=== PATIENT | female | born 1965 | race Two or more races ===

== ENCOUNTER 2020-02-13 09:40 | Inpatient (IN) | payer OTHER ==
[~2020-02-13] VITALS: Ht 160 cm; Wt 68.5 kg
--- NOTE | 2020-02-13 09:39 | NUR ---
ED Nurse Note: NO isolation room available at this time. ERMD and charge nurse aware.
[2020-02-13 09:40] VITALS: BP 144/86
--- NOTE | 2020-02-13 09:40 | NUR ---
ED Nurse Note: Pt NICHugh RA26 from work c/o weakness, fatigue, body aches and ALOC x45 mins ago. Per pt, she suddenly felt dizzy. Pt works in a [employer]. Pt AAOx4, verbally responsive upon arrival. Denies CP/ SOB. Breathing even and unlabored, on room air. Isolation precaution is observed. Placed on lunchroom monitor. ERMD at bedside.
[2020-02-13] MEDS ORDERED: Cefepime HCl 1 GM in NS 55 ML IV ONE (09:45)
[2020-02-13] MEDS ORDERED: Vancomycin 1 GM in NS 275 ML IV ONE (09:45)
--- NOTE | 2020-02-13 09:49 | Emergency Room Report ---
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 Patient History Limited by: medical condition - Altered mental status Past Medical History: see triage record Reviewed Nursing Documentation: PMH: Agreed; PSxH: Agreed Review of Systems All Other Systems: limited - Altered mental status Physical Exam Vital Signs Date Time Temp Pulse Resp B/P (MAP) Pulse Ox O2 Delivery O2 Flow Rate FiO2 02/13/20 09:36 98.8 64 16 144/86 (105) 99 Room Air Sp02 EP Interpretation: reviewed, normal General Appearance: lethargic Head: normocephalic, atraumatic Eyes: bilateral eye PERRL, bilateral eye EOMI ENT: uvula midline, moist mucus membranes Neck: supple, thyroid normal, supple/symm/no masses Respiratory: lungs clear, no respiratory distress, no retraction, no accessory muscle use Cardiovascular #1: normal peripheral pulses, regular rate, rhythm, no edema, no gallop, no murmur Gastrointestinal: non tender, soft, no guarding, no rebound Musculoskeletal: normal inspection Neurologic: responsive, other - Moves all 4 extremities Skin: no rash, warm/dry Procedures Critical Care Time Critical Care Time Given the critical condition in which the patient arrived, the patient was immediately assessed by myself and the nurse, and cardiac monitoring initiated due to the potential for rapid decompensation of the patient's clinical condition. During the course of the patient's stay, I spent a considerable amount of time at the bedside performing serial re-evaluations of the patient's hemodynamic and clinical status because of the recognized potential threat to life or limb in this condition. I then had a chance to review not only all of the available current laboratory and radiographic studies obtained today, but I also reviewed old records available to me at the time. Additionally, any ancillary information available including tongue carrier records were reviewed. Sequential vital signs were obtained. Critical Care time of 33 minutes was performed exclusive of billable procedures. Medical Decision Making Diagnostic Impression: Primary Impression: Altered mental status Qualified Codes: R41.82 - Altered mental status, unspecified Additional Impressions: Encephalitis COVID-19 ER Course as of this note, there are currently no isolation beds in the ED nor are there are nurses available, Unable to currently do blood work or send patient to the CT, timestamp 9:49 AM Patient positive for Covid, Patient given 1L NS, Cefepime and Vanco Authorization number from [place] [id number] from Dr. Christine patient may be admitted to hospital Dr. Addy Larios MD consulted Patient admitted to Dr. Del Angel Laboratory Tests Test 02/13/20 10:30 02/13/20 11:15 White Blood Count 4.5 K/UL (4.8-10.8) L Red Blood Count 4.36 M/UL (4.20-5.40) Hemoglobin 13.9 G/DL (12.0-16.0) Hematocrit 39.1 % (37.0-47.0) Mean Corpuscular Volume 90 FL (80-99) Mean Corpuscular Hemoglobin 31.9 PG (27.0-31.0) H Mean Corpuscular Hemoglobin Concent 35.5 G/DL (32.0-36.0) Red Cell Distribution Width 12.5 % (11.6-14.8) Platelet Count 283 K/UL (150-450) Mean Platelet Volume 6.8 FL (6.5-10.1) Neutrophils (%) (Auto) 68.6 % (45.0-75.0) Lymphocytes (%) (Auto) 17.4 % (20.0-45.0) L Monocytes (%) (Auto) 11.2 % (1.0-10.0) H Eosinophils (%) (Auto) 0.3 % (0.0-3.0) Basophils (%) (Auto) 2.5 % (0.0-2.0) H Prothrombin Time 11.4 SEC (9.30-11.50) Prothrombin Time INR 1.0 (0.9-1.1) Activated Partial Thromboplast Time 22 SEC (23-33) L Sodium Level 139 MMOL/L (136-145) Potassium Level 3.6 MMOL/L (3.5-5.1) Chloride Level 104 MMOL/L (98-107) Carbon Dioxide Level 25 MMOL/L (21-32) Anion Gap 10 mmol/L (5-15) Blood Urea Nitrogen 18 mg/dL (7-18) Creatinine 0.8 MG/DL (0.55-1.30) Estimated Glomerular Filtration Rate > 60 mL/min (>60) Glucose Level 121 MG/DL (74-106) H Calcium Level 9.0 MG/DL (8.5-10.1) Phosphorus Level 3.1 MG/DL (2.5-4.9) Magnesium Level 1.9 MG/DL (1.8-2.4) Total Bilirubin 0.3 MG/DL (0.2-1.0) Aspartate Amino Transferase (AST) 64 U/L (15-37) H Alanine Aminotransferase (ALT) 46 U/L (12-78) Alkaline Phosphatase 120 U/L (46-116) H Total Creatine Kinase 21 U/L (26-308) L Creatine Kinase MB < 0.5 NG/ML (0.0-3.6) Creatine Kinase MB Relative Index 2.3 Troponin I 0.000 ng/mL (0.000-0.056) Pro-B-Type Natriuretic Peptide 55 pg/mL (0-125) Total Protein 8.1 G/DL (6.4-8.2) Albumin 4.1 G/DL (3.4-5.0) Globulin 4.0 g/dL Albumin/Globulin Ratio 1.0 (1.0-2.7) Lipase 162 U/L (73-393) Urine Color Pale yellow Urine Appearance Slightly cloudy Urine pH 6 (4.5-8.0) Urine Specific [place] 1.010 (1.005-1.035) Urine Protein Negative (NEGATIVE) Urine Glucose (UA) Negative (NEGATIVE) Urine Ketones Negative (NEGATIVE) Urine Blood 1+ (NEGATIVE) H Urine Nitrite Negative (NEGATIVE) Urine Bilirubin Negative (NEGATIVE) Urine Urobilinogen Normal MG/DL (0.0-1.0) Urine Leukocyte Esterase 1+ (NEGATIVE) H Urine RBC 0-2 /HPF (0 - 2) Urine WBC 0-2 /HPF (0 - 2) Urine Squamous Epithelial Cells Occasional /LPF Urine Bacteria Occasional /HPF (NONE) Microbiology Date/Time Source Procedure Growth Status 02/13/20 10:30 Nasopharynx SARS-CoV-2 RdRp Gene Assay - Final Complete EKG Diagnostic Results Troponin ordered: Yes When was troponin ordered?: Feb 13, 2020 EKG Time: 10:44 EP Interpretation: NSR rate 75 QTC 439, no acute ST elevations, normal axis Rhythm Strip Diag. Results Rhythm Strip Time: 13:00 EP Interpretation: yes Rate: 75 Rhythm: NSR, no PVC's, no ectopy Chest X-Ray Diagnostic Results Chest X-Ray Diagnostic Results : Chest X-Ray Ordered: Yes # of Views/Limited/Complete: 1 View Indication: Other - Altered Mental status EP Interpretation: Yes Interpretation: no consolidation, no effusion, no pneumothorax, no acute cardiopulmonary disease Impression: No acute disease Electronically Signed by: Addy Mendez MD CT/MRI/US Diagnostic Results CT/MRI/US Diagnostic Results : Impression Procedure: CT Head no Contrast Indications: Altered mental status Technique: Spiral acquisitions obtained through the brain. Angled axial and coronal 5 x 5 mm slices were reconstructed. Total dose length product 885 mGycm. CTDI vol(s) 53 mGy. Dose reduction achieved using automated exposure control Comparison: None. Findings: No acute intracranial hemorrhage nor edema. No mass effect nor midline shift. There is mild frontal cortical volume loss, out of portion to patient's age. Normal size ventricles. Normal mason-white differentiation. Impression: No acute intracranial bleed or mass effect The CT scanner at [facility] is accredited by the [employer] and the scans are performed using protocols designed to limit radiation exposure to as low as reasonably achievable to attain images of sufficient resolution adequate for diagnostic evaluation. Dictated By: Todd Mehta MD Electronically Signed By:Todd Mehta MD Signed Date/Time02/13/20 1116 CC: Addy Mendez MD Last Vital Signs Date Time Temp Pulse Resp B/P (MAP) Pulse Ox O2 Delivery O2 Flow Rate FiO2 02/13/20 09:36 98.8 64 16 144/86 (105) 99 Room Air Disposition: ADMITTED INPATIENT Condition: Critical Addy Mendez MD Feb 13, 2020 09:48
--- NOTE | 2020-02-13 10:30 | NUR ---
ED Nurse Note: IV line established by paramedics en route. Blood and covid swab sent to lab.
[2020-02-13 10:47] LABS: BASOPHILS % (AUTO) 2.5 % (0.0-2.0); EOSINOPHILS % (AUTO) 0.3 % (0.0-3.0); HEMATOCRIT 39.1 % (37.0-47.0); HEMOGLOBIN 13.9 G/DL (12.0-16.0); LYMPHOCYTES % (AUTO) 17.4 % (20.0-45.0); MEAN CORPUSCULAR VOLUME 90 FL (80-99); MONOCYTES % (AUTO) 11.2 % (1.0-10.0); NEUTROPHILS % (AUTO) 68.6 % (45.0-75.0); PLATELET COUNT 283 K/UL (150-450); RED BLOOD COUNT 4.36 M/UL (4.20-5.40); RED CELL DISTRIBUTION WIDTH 12.5 % (11.6-14.8); WHITE BLOOD COUNT 4.5 K/UL (4.8-10.8)
--- NOTE | 2020-02-13 10:47 | NUR ---
ED Nurse Note: Pt was taken to CT via jorge a, accompanied by a tech.
[2020-02-13 11:03] LABS: ANION GAP 10 mmol/L (5-15); BLOOD UREA NITROGEN 18 mg/dL (7-18); CARBON DIOXIDE 25 MMOL/L (21-32); CHLORIDE 104 MMOL/L (98-107); CREATININE 0.8 MG/DL (0.55-1.30); POTASSIUM 3.6 MMOL/L (3.5-5.1); SODIUM 139 MMOL/L (136-145)
--- NOTE | 2020-02-13 11:15 | NUR ---
ED Nurse Note: Urine sent.
--- NOTE | 2020-02-13 11:15 | Diagnostic Imaging Report ---
Indication: Shortness of breath Technique: One view of the chest Comparison: none Findings: Lungs and pleural spaces are clear. Heart size is normal. Impression: No acute process
[2020-02-13 11:18] LABS: ALANINE AMINOTRANSFERASE 46 U/L (12-78); ALBUMIN 4.1 G/DL (3.4-5.0); ALKALINE PHOSPHATASE 120 U/L (46-116); ASPARTATE AMINO TRANSFERASE 64 U/L (15-37); BILIRUBIN,TOTAL 0.3 MG/DL (0.2-1.0); CKMB < 0.5 NG/ML (0.0-3.6); CREATINE KINASE 21 U/L (26-308); PHOSPHORUS 3.1 MG/DL (2.5-4.9)
--- NOTE | 2020-02-13 11:21 | Diagnostic Imaging Report ---
Indications: Altered mental status Technique: Spiral acquisitions obtained through the brain. Angled axial and coronal 5 x 5 mm slices were reconstructed. Total dose length product 885 mGycm. CTDI vol(s) 53 mGy. Dose reduction achieved using automated exposure control Comparison: None. Findings: No acute intracranial hemorrhage nor edema. No mass effect nor midline shift. There is mild frontal cortical volume loss, out of portion to patient's age. Normal size ventricles. Normal mason-white differentiation. Impression: No acute intracranial bleed or mass effect The CT scanner at [facility] is accredited by the [employer] and the scans are performed using protocols designed to limit radiation exposure to as low as reasonably achievable to attain images of sufficient resolution adequate for diagnostic evaluation.
[2020-02-13 11:28] LABS: APPEARANCE,URINE SLIGHTLY CLOUDY; BILIRUBIN, URINE NEGATIVE (NEGATIVE); COLOR,URINE PALE YELLOW; GLUCOSE, URINE (UA) NEGATIVE (NEGATIVE); KETONES,URINE NEGATIVE (NEGATIVE); LEUKOCYTE ESTERASE ,URINE 1+ (NEGATIVE); NITRITE,URINE NEGATIVE (NEGATIVE); PH,URINE 6 (4.5-8.0); PROTEIN,URINE NEGATIVE (NEGATIVE); UROBILINOGEN,URINE NORMAL MG/DL (0.0-1.0)
--- NOTE | 2020-02-13 11:33 | NUR ---
ED Nurse Note: Patient COVID +, was transfered to isolation room 07.
[2020-02-13] MEDS ORDERED: Gadavist 7.5mMol/7.5ml vial IV PRN (13:15)
[2020-02-13 13:20] VITALS: BP 142/80
--- NOTE | 2020-02-13 15:11 | Diagnostic Imaging Report ---
Indication: Altered mental status, unsteady gait Technique: sagittal T1 fast spin echo, axial T1 and T2 FLAIR PROPELLER, axial T2 FS PROPELLER, T2* GRE, axial diffusion weighted images, post contrast axial and coronal T1 FLAIR PROPELLER images. ADC and exponential ADC maps generated Comparison: CT brain earlier the same day Findings: . No abnormal areas of restricted diffusion to suggest acute infarction. No acute hemorrhage or edema. No mass effect nor midline shift. No abnormal contrast enhancement. Normal size ventricles. There is mild prominence to the frontal and posterior fossa extra-axial CSF spaces. Focal T2 hyperintensities are seen scattered throughout the deep white matter.. Visualized orbits and sinuses are unremarkable. The vascular flow voids are preserved. Impression: Scattered focal T2 hyperintensities. These are nonspecific, could indicate microvascular ischemic changes, versus demyelinating disease, among other possibilities Negative for acute intracranial bleed, mass effect, or contrast enhancement Frontal and posterior fossa volume loss, presumably age-related but somewhat advanced for age.
--- NOTE | 2020-02-13 15:45 | NUR ---
ED Nurse Note: bloood culture and lactic sent to lab
--- NOTE | 2020-02-13 17:15 | NUR ---
ED Nurse Note: patient AAO x4, VSS at this time, resting in the bed, warm blankets were provided for comfort
[2020-02-13 18:10] VITALS: BP 138/85
--- NOTE | 2020-02-13 18:13 | History & Physical ---
History and Physical History & Physicial History ans Physical HPI Patient is a 44-year-old woman noted to be Covid-19 positive, admitted complaining of fatigue, body aches, altered mental status, duration 1day, no aggravating relieving factors severity is moderate. CXR no infiltates,CT no IC pathology. Started on broad spectrum antibiotics for possible meningitis - Neurology consulted. Allergies: No Known Allergies) Past Medical History: none noted Family Hx: NC SocialHx: NC Review of Systems: limited - Altered mental status Physical Exam Vital Signs noted Date Time Temp Pulse Resp B/P (MAP) Pulse Ox O2 Delivery O2 Flow Rate FiO2 02/13/20 09:36 98.8 64 16 144/86 (105) 99 Room Air General Appearance: lethargic Head: normocephalic, atraumatic Eyes: bilateral eye PERRL, bilateral eye EOMI ENT: uvula midline, moist mucus membranes Neck: supple, thyroid normal, supple/symm/no masses Respiratory: lungs clear, no respiratory distress, no retraction, no accessory muscle use Cardiovascular: normal peripheral pulses, regular rate, rhythm, no edema, no gallop, no murmur Gastrointestinal: non tender, soft, no guarding, no rebound Musculoskeletal: normal inspection Neurologic: responsive, other - Moves all 4 extremities Skin: no rash, warm/dry per report - deferred Covid19. Medical Decision Making Impression: Altered mental status Encephalitis vs Meningitis COVID-19 Plan: IV AB:Cefepime and Vanco IVF O2 PRN Neurology Consultation NPO except meds PPX Monitor labs Laboratory Tests noted Test 02/13/20 10:30 02/13/20 11:15 White Blood Count 4.5 K/UL (4.8-10.8) L Red Blood Count 4.36 M/UL (4.20-5.40) Hemoglobin 13.9 G/DL (12.0-16.0) Hematocrit 39.1 % (37.0-47.0) Mean Corpuscular Volume 90 FL (80-99) Mean Corpuscular Hemoglobin 31.9 PG (27.0-31.0) H Mean Corpuscular Hemoglobin Concent 35.5 G/DL (32.0-36.0) Red Cell Distribution Width 12.5 % (11.6-14.8) Platelet Count 283 K/UL (150-450) Mean Platelet Volume 6.8 FL (6.5-10.1) Neutrophils (%) (Auto) 68.6 % (45.0-75.0) Lymphocytes (%) (Auto) 17.4 % (20.0-45.0) L Monocytes (%) (Auto) 11.2 % (1.0-10.0) H Eosinophils (%) (Auto) 0.3 % (0.0-3.0) Basophils (%) (Auto) 2.5 % (0.0-2.0) H Prothrombin Time 11.4 SEC (9.30-11.50) Prothrombin Time INR 1.0 (0.9-1.1) Activated Partial Thromboplast Time 22 SEC (23-33) L Sodium Level 139 MMOL/L (136-145) Potassium Level 3.6 MMOL/L (3.5-5.1) Chloride Level 104 MMOL/L (98-107) Carbon Dioxide Level 25 MMOL/L (21-32) Anion Gap 10 mmol/L (5-15) Blood Urea Nitrogen 18 mg/dL (7-18) Creatinine 0.8 MG/DL (0.55-1.30) Estimated Glomerular Filtration Rate > 60 mL/min (>60) Glucose Level 121 MG/DL (74-106) H Calcium Level 9.0 MG/DL (8.5-10.1) Phosphorus Level 3.1 MG/DL (2.5-4.9) Magnesium Level 1.9 MG/DL (1.8-2.4) Total Bilirubin 0.3 MG/DL (0.2-1.0) Aspartate Amino Transferase (AST) 64 U/L (15-37) H Alanine Aminotransferase (ALT) 46 U/L (12-78) Alkaline Phosphatase 120 U/L (46-116) H Total Creatine Kinase 21 U/L (26-308) L Creatine Kinase MB < 0.5 NG/ML (0.0-3.6) Creatine Kinase MB Relative Index 2.3 Troponin I 0.000 ng/mL (0.000-0.056) Pro-B-Type Natriuretic Peptide 55 pg/mL (0-125) Total Protein 8.1 G/DL (6.4-8.2) Albumin 4.1 G/DL (3.4-5.0) Globulin 4.0 g/dL Albumin/Globulin Ratio 1.0 (1.0-2.7) Lipase 162 U/L (73-393) Urine Color Pale yellow Urine Appearance Slightly cloudy Urine pH 6 (4.5-8.0) Urine Specific [place] 1.010 (1.005-1.035) Urine Protein Negative (NEGATIVE) Urine Glucose (UA) Negative (NEGATIVE) Urine Ketones Negative (NEGATIVE) Urine Blood 1+ (NEGATIVE) H Urine Nitrite Negative (NEGATIVE) Urine Bilirubin Negative (NEGATIVE) Urine Urobilinogen Normal MG/DL (0.0-1.0) Urine Leukocyte Esterase 1+ (NEGATIVE) H Urine RBC 0-2 /HPF (0 - 2) Urine WBC 0-2 /HPF (0 - 2) Urine Squamous Epithelial Cells Occasional /LPF Urine Bacteria Occasional /HPF (NONE) Microbiology Date/Time Source Procedure Growth Status 02/13/20 10:30 Nasopharynx SARS-CoV-2 RdRp Gene Assay - Final Complete EKG: NSR rate 75 QTC 439, no acute ST elevations, normal axis Chest X-Ray: no consolidation, no effusion, no pneumothorax, no acute cardiopulmonary disease CT Head, non contrast: Indications: Altered mental status No acute intracranial hemorrhage nor edema. No mass effect nor midline shift. There is mild frontal cortical volume loss, out of portion to patient's age. Normal size ventricles. Normal mason-white differentiation. Impression: No acute intracranial bleed or mass effect Kd Whitaker MD Feb 13, 2020 18:13
[2020-02-13] MEDS ORDERED: Varibar Honey 250ml MC PRN (19:00)
[2020-02-13] MEDS ORDERED: Varibar Pudding 230ml MC PRN (19:00)
[2020-02-13] MEDS ORDERED: Varibar Thin Liquid powder 148gm MC PRN (19:00)
[2020-02-13] MEDS ORDERED: Varibar Nectar 240ml MC PRN (19:00)
[2020-02-13] MEDS ORDERED: Vancomycin 1 GM in D5W 275 ML IV SCH (19:15)
--- NOTE | 2020-02-13 19:19 | NUR ---
HAND-OFF: Report given to NAYAN Nunez.
--- NOTE | 2020-02-13 19:20 | NUR ---
ED Nurse Note: Report received from AZIZA SPICER, Patient awake on bed. VSS as documented
[2020-02-13] MEDS: Heparin 5000 units/ml inj SUBQ SCH (20:42)
--- NOTE | 2020-02-13 22:00 | NUR ---
ED Nurse Note: Food and drinks provided
[2020-02-13 22:05] VITALS: BP 129/78
[2020-02-13] MEDS: Cefepime HCl 2 GM in D5W 110 ML IV SCH (22:28)
[2020-02-13] MEDS ORDERED: Vancomycin 1gm/D5W 275ml IVPB SCH ×2 (23:00)
[2020-02-14] VITALS (7 sets, daily range): BP systolic 128–145; BP diastolic 69–89
--- NOTE | 2020-02-14 00:10 | NUR ---
ED Nurse Note: Patient placed on ikshan bed.
--- NOTE | 2020-02-14 05:48 | NUR ---
ED Nurse Note: Admit labs sent. IV reinserted at right hand g20.
[2020-02-14 06:14] LABS: HEMATOCRIT 35.9 % (37.0-47.0); HEMOGLOBIN 12.6 G/DL (12.0-16.0); MEAN CORPUSCULAR VOLUME 92 FL (80-99); PLATELET COUNT 255 K/UL (150-450); RED CELL DISTRIBUTION WIDTH 11.6 % (11.6-14.8); WHITE BLOOD COUNT 2.9 K/UL (4.8-10.8)
[2020-02-14 06:39] LABS: ALANINE AMINOTRANSFERASE 36 U/L (12-78); ALBUMIN 3.3 G/DL (3.4-5.0); ALKALINE PHOSPHATASE 90 U/L (46-116); ANION GAP 6 mmol/L (5-15); ASPARTATE AMINO TRANSFERASE 36 U/L (15-37); BILIRUBIN,DIRECT 0.2 MG/DL (0.0-0.3); BILIRUBIN,TOTAL 0.3 MG/DL (0.2-1.0); BLOOD UREA NITROGEN 17 mg/dL (7-18); CALCIUM 8.7 MG/DL (8.5-10.1); CARBON DIOXIDE 26 MMOL/L (21-32); CHLORIDE 108 MMOL/L (98-107); CREATININE 0.7 MG/DL (0.55-1.30); PHOSPHORUS 3.7 MG/DL (2.5-4.9); POTASSIUM 3.8 MMOL/L (3.5-5.1); SODIUM 140 MMOL/L (136-145)
--- NOTE | 2020-02-14 06:48 | NUR ---
ED Nurse Note: Patient transferred to bed 8. Breakfast served.
[2020-02-14] MEDS: Cefepime HCl 2 GM in D5W 110 ML IV SCH (08:59)
[2020-02-14] MEDS: Heparin 5000 units/ml inj SUBQ SCH ×2 (09:00→21:00)
--- NOTE | 2020-02-14 10:17 | NUR ---
ED Nurse Note: report given to alberto carpenter. endorsed patient care
--- NOTE | 2020-02-14 10:35 | NUR ---
ED Nurse Note: Patient is transferred to telemetry unit with all her belongings. Patient is stable for transfer with portable cardiac cath lab technologist.
[2020-02-14] MEDS ORDERED: Vancomycin 1gm/D5W 275ml IVPB SCH ×2 (11:00)
--- NOTE | 2020-02-14 11:00 | NUR ---
NURSE NOTES: Patient admitted from ER via hospital bed, AxOx4, not in distress, no complaints of pain. Pt is able to ambulate to bed. Skin in clean, dry and intact. PIV on right hand patent. Pt is continent. All admission orders done by Dr. Del Angel, pt currently NPO and
[2020-02-14] MEDS ORDERED: EMERGEN-C 1,01000 MG PO (11:57)
[2020-02-14] MEDS ORDERED: SYNTHROID50 MCG ORAL (11:57)
--- NOTE | 2020-02-14 15:00 | NUR ---
NURSE NOTES: Dr. Whitaker saw patient on rounds. Received orders to DC IV antibiotics and observe off antibiotics. spoke with patient and informed her that he would like her to stay overnight and possibly discharge home in AM but that Dr. Solis (ID) was going to see patient today and if ok with her, patient may DC home. Patient verbalized understanding.
--- NOTE | 2020-02-14 17:58 | Neurology Progress Note ---
Interim History Interim History Interim History 44-year-old female, presents from her work, patient presented with fatigue body aches altered mental status, started today, no aggravating relieving factors severity is moderate, constant patient presents via EMS called by er yesterday on broad spectrum atb ct noted, normal no fever today she is aox 3 non focal ok to dc Objective Physical Exam Last Vital Signs Date Time Temp Pulse Resp B/P (MAP) Pulse Ox O2 Delivery O2 Flow Rate FiO2 02/14/20 16:00 75 02/14/20 16:00 96.1 18 145/75 (98) 99 02/14/20 10:56 Room Air 02/14/20 10:35 2.0 28 Laboratory Tests Test 02/14/20 05:30 White Blood Count 2.9 K/UL (4.8-10.8) L Red Blood Count 3.90 M/UL (4.20-5.40) L Hemoglobin 12.6 G/DL (12.0-16.0) Hematocrit 35.9 % (37.0-47.0) L Mean Corpuscular Volume 92 FL (80-99) Mean Corpuscular Hemoglobin 32.4 PG (27.0-31.0) H Mean Corpuscular Hemoglobin Concent 35.2 G/DL (32.0-36.0) Red Cell Distribution Width 11.6 % (11.6-14.8) Platelet Count 255 K/UL (150-450) Mean Platelet Volume 6.7 FL (6.5-10.1) Neutrophils (%) (Auto) % (45.0-75.0) Lymphocytes (%) (Auto) % (20.0-45.0) Monocytes (%) (Auto) % (1.0-10.0) Eosinophils (%) (Auto) % (0.0-3.0) Basophils (%) (Auto) % (0.0-2.0) Sodium Level 140 MMOL/L (136-145) Potassium Level 3.8 MMOL/L (3.5-5.1) Chloride Level 108 MMOL/L (98-107) H Carbon Dioxide Level 26 MMOL/L (21-32) Anion Gap 6 mmol/L (5-15) Blood Urea Nitrogen 17 mg/dL (7-18) Creatinine 0.7 MG/DL (0.55-1.30) Estimat Glomerular Filtration Rate > 60 mL/min (>60) Glucose Level 93 MG/DL (74-106) Calcium Level 8.7 MG/DL (8.5-10.1) Phosphorus Level 3.7 MG/DL (2.5-4.9) Total Bilirubin 0.3 MG/DL (0.2-1.0) Direct Bilirubin 0.2 MG/DL (0.0-0.3) Aspartate Amino Transf (AST/SGOT) 36 U/L (15-37) Alanine Aminotransferase (ALT/SGPT) 36 U/L (12-78) Alkaline Phosphatase 90 U/L (46-116) Total Protein 6.7 G/DL (6.4-8.2) Albumin 3.3 G/DL (3.4-5.0) L Globulin 3.4 g/dL Albumin/Globulin Ratio 1.0 (1.0-2.7) Free Thyroxine 0.94 NG/DL (0.76-1.46) Free Triiodothyronine 1.7 pg/mL (2.3-4.2) L Neurologic Exam Mental Status: awake, alert, oriented x4 Speech: normal speech Language: normal language Cranial Nerves III, IV, : PERRLA, EOMI Cranial Nerve IX: normal palate elevation Cranial Nerve XII: tongue midline Gait: stable Objective moving all 4 ext Impression/Recommendations Problems: (1) Encephalitis (2) Altered mental status (3) COVID-19 Diagnostic Impression no encephalitis normal exam ok to Addy Nuñez MD Feb 14, 2020 17:58
--- NOTE | 2020-02-14 17:58 | Consultation ---
History of Present Illness General Chief Complaint: Altered Mental Status Present Illness HPI 44-year-old female, presents from her work, patient presented with fatigue body aches altered mental status, started today, no aggravating relieving factors severity is moderate, constant patient presents via EMS Allergies: Coded Allergies: No Known Allergies (Unverified , 02/13/20) Medication History Scheduled Ascorbic Acid/Multivit-Min (Emergen-C 1,000 mg Packet), 1,000 MG PO DAILY, (Reported) Levothyroxine Sodium (Synthroid*), 50 MCG ORAL DAILY, (Reported) Patient History Healthcare decision maker Resuscitation status Advanced Directive on File Physical Exam Last 24 Hour Vital Signs Date Time Temp Pulse Resp B/P (MAP) Pulse Ox O2 Delivery O2 Flow Rate FiO2 02/14/20 16:00 75 02/14/20 16:00 96.1 72 18 145/75 (98) 99 02/14/20 12:00 98.1 65 18 140/72 (94) 97 02/14/20 12:00 70 02/14/20 10:56 Room Air 02/14/20 10:35 97.8 83 15 127/80 99 Nasal Cannula 2.0 28 02/14/20 09:30 98.2 82 16 133/89 97 Nasal Cannula 2.0 02/14/20 08:35 117 23 Nasal Cannula 2.0 02/14/20 07:30 98.5 85 16 128/84 100 Room Air 02/14/20 05:50 98.8 72 18 131/78 99 Room Air 02/14/20 02:35 98.8 67 20 134/87 99 Room Air 02/13/20 22:05 98.8 66 20 129/78 99 Room Air 02/13/20 18:10 98.8 64 18 138/85 99 Room Air Intake and Output 02/13/20 02/14/20 19:00 07:00 Intake Total 250 ml 1350 ml Output Total 700 ml Balance 250 ml 650 ml Intake Oral 250 ml 600 ml IV Total 750 ml Output Urine Total 700 ml # Voids 3 Laboratory Tests Test 02/14/20 05:30 White Blood Count 2.9 K/UL (4.8-10.8) L Red Blood Count 3.90 M/UL (4.20-5.40) L Hemoglobin 12.6 G/DL (12.0-16.0) Hematocrit 35.9 % (37.0-47.0) L Mean Corpuscular Volume 92 FL (80-99) Mean Corpuscular Hemoglobin 32.4 PG (27.0-31.0) H Mean Corpuscular Hemoglobin Concent 35.2 G/DL (32.0-36.0) Red Cell Distribution Width 11.6 % (11.6-14.8) Platelet Count 255 K/UL (150-450) Mean Platelet Volume 6.7 FL (6.5-10.1) Neutrophils (%) (Auto) % (45.0-75.0) Lymphocytes (%) (Auto) % (20.0-45.0) Monocytes (%) (Auto) % (1.0-10.0) Eosinophils (%) (Auto) % (0.0-3.0) Basophils (%) (Auto) % (0.0-2.0) Sodium Level 140 MMOL/L (136-145) Potassium Level 3.8 MMOL/L (3.5-5.1) Chloride Level 108 MMOL/L (98-107) H Carbon Dioxide Level 26 MMOL/L (21-32) Anion Gap 6 mmol/L (5-15) Blood Urea Nitrogen 17 mg/dL (7-18) Creatinine 0.7 MG/DL (0.55-1.30) Estimat Glomerular Filtration Rate > 60 mL/min (>60) Glucose Level 93 MG/DL (74-106) Calcium Level 8.7 MG/DL (8.5-10.1) Phosphorus Level 3.7 MG/DL (2.5-4.9) Total Bilirubin 0.3 MG/DL (0.2-1.0) Direct Bilirubin 0.2 MG/DL (0.0-0.3) Aspartate Amino Transf (AST/SGOT) 36 U/L (15-37) Alanine Aminotransferase (ALT/SGPT) 36 U/L (12-78) Alkaline Phosphatase 90 U/L (46-116) Total Protein 6.7 G/DL (6.4-8.2) Albumin 3.3 G/DL (3.4-5.0) L Globulin 3.4 g/dL Albumin/Globulin Ratio 1.0 (1.0-2.7) Free Thyroxine 0.94 NG/DL (0.76-1.46) Free Triiodothyronine 1.7 pg/mL (2.3-4.2) L Height (Feet): 5 Height (Inches): 3.00 Weight (Pounds): 151 Medications Current Medications Medications (Trade) Dose Ordered Sig/Santos Route PRN Reason Start Time Stop Time Status Last Admin Dose Admin Acetaminophen (Tylenol) 650 mg Q4H PRN ORAL Mild Pain (Pain Scale 1-3) 02/13/20 18:15 03/14/20 18:14 Barium Sulfate (Varibar Honey) 250 ml NOW PRN RAD 02/13/20 19:00 02/16/20 18:45 Barium Sulfate (Varibar [place]) 240 ml NOW PRN RAD 02/13/20 19:00 02/16/20 18:45 Barium Sulfate (Varibar Pudding) 230 ml NOW PRN RAD 02/13/20 19:00 02/16/20 18:45 Barium Sulfate (Varibar Thin Liquid powder) 148 gm NOW PRN RAD 02/13/20 19:00 02/16/20 18:45 Dextrose/ Electrolytes 1,000 ml @ 75 mls/hr [id number] IV 02/14/20 12:00 03/15/20 11:59 02/14/20 12:03 Gadobutrol (Gadavist) 7.5 mmol NOW PRN IV Radiology Procedure 02/13/20 13:15 02/17/20 13:14 Heparin Sodium (Porcine) (Heparin 5000 units/ml) 5,000 units EVERY 12 HOURS SUBQ 02/13/20 21:00 03/29/20 20:59 02/14/20 09:00 Levothyroxine Sodium (Synthroid) 50 mcg DAILY@0630 ORAL 02/15/20 06:30 03/16/20 06:29 Ondansetron HCl (Zofran) 4 mg Q6H PRN IVP Nausea & Vomiting 02/13/20 18:15 03/14/20 18:14 Assessment/Plan Problem List: (1) Encephalitis ICD Codes: G04.90 - Encephalitis and encephalomyelitis, unspecified SNOMED: 54541362 (2) Altered mental status ICD Codes: R41.82 - Altered mental status, unspecified SNOMED: 520048583 Qualifiers: Qualified Codes: R41.82 - Altered mental status, unspecified (3) COVID-19 ICD Codes: U07.1 - COVID-19 SNOMED: 919074238 Addy Larios MD Feb 14, 2020 17:58
--- NOTE | 2020-02-14 18:00 | Pulmonology Progress Note ---
Subjective ROS Limited/Unobtainable: No Allergies: Coded Allergies: No Known Allergies (Unverified , 02/13/20) Objective Last 24 Hour Vital Signs Date Time Temp Pulse Resp B/P (MAP) Pulse Ox O2 Delivery O2 Flow Rate FiO2 02/14/20 16:00 75 02/14/20 16:00 96.1 72 18 145/75 (98) 99 02/14/20 12:00 98.1 65 18 140/72 (94) 97 02/14/20 12:00 70 02/14/20 10:56 Room Air 02/14/20 10:35 97.8 83 15 127/80 99 Nasal Cannula 2.0 02/14/20 09:30 98.2 82 16 133/89 97 Nasal Cannula 2.0 02/14/20 08:35 117 23 Nasal Cannula 2.0 02/14/20 07:30 98.5 85 16 128/84 100 Room Air 02/14/20 05:50 98.8 72 18 131/78 99 Room Air 02/14/20 02:35 98.8 67 20 134/87 99 Room Air 02/13/20 22:05 98.8 66 20 129/78 99 Room Air 02/13/20 18:10 98.8 64 18 138/85 99 Room Air Intake and Output 02/13/20 02/14/20 19:00 07:00 Intake Total 250 ml 1350 ml Output Total 700 ml Balance 250 ml 650 ml Intake Oral 250 ml 600 ml IV Total 750 ml Output Urine Total 700 ml # Voids 3 Microbiology Date/Time Source Procedure Growth Status 02/13/20 10:30 Nasopharynx SARS-CoV-2 RdRp Gene Assay - Final Complete Laboratory Tests 02/14/20 05:30: White Blood Count 2.9L, Red Blood Count 3.90L, Hemoglobin 12.6, Hematocrit 35.9L , Mean Corpuscular Volume 92, Mean Corpuscular Hemoglobin 32.4H, Mean Corpuscular Hemoglobin Concent 35.2, Red Cell Distribution Width 11.6, Platelet Count 255, Mean Platelet Volume 6.7, Neutrophils (%) (Auto) , Lymphocytes (%) (Auto) , Monocytes (%) (Auto) , Eosinophils (%) (Auto) , Basophils (%) (Auto) , Sodium Level 140, Potassium Level 3.8, Chloride Level 108H, Carbon Dioxide Level 26, Anion Gap 6, Blood Urea Nitrogen 17, Creatinine 0.7, Estimat Glomerular Filtration Rate > 60, Glucose Level 93, Calcium Level 8.7, Phosphorus Level 3.7, Total Bilirubin 0.3, Direct Bilirubin 0.2, Aspartate Amino Transf (AST/SGOT) 36, Alanine Aminotransferase (ALT/SGPT) 36, Alkaline Phosphatase 90, Total Protein 6.7, Albumin 3.3L, Globulin 3.4, Albumin/Globulin Ratio 1.0, Free Thyroxine 0.94, Free Triiodothyronine 1.7L Current Medications Medications (Trade) Dose Ordered Sig/Santos Route PRN Reason Start Time Stop Time Status Last Admin Dose Admin Acetaminophen (Tylenol) 650 mg Q4H PRN ORAL Mild Pain (Pain Scale 1-3) 02/13/20 18:15 03/14/20 18:14 Barium Sulfate (Varibar Honey) 250 ml NOW PRN RAD 02/13/20 19:00 02/16/20 18:45 Barium Sulfate (Varibar [place]) 240 ml NOW PRN RAD 02/13/20 19:00 02/16/20 18:45 Barium Sulfate (Varibar Pudding) 230 ml NOW PRN RAD 02/13/20 19:00 02/16/20 18:45 Barium Sulfate (Varibar Thin Liquid powder) 148 gm NOW PRN RAD 02/13/20 19:00 02/16/20 18:45 Dextrose/ Electrolytes 1,000 ml @ 75 mls/hr [id number] IV 02/14/20 12:00 03/15/20 11:59 02/14/20 12:03 Gadobutrol (Gadavist) 7.5 mmol NOW PRN IV Radiology Procedure 02/13/20 13:15 02/17/20 13:14 Heparin Sodium (Porcine) (Heparin 5000 units/ml) 5,000 units EVERY 12 HOURS SUBQ 02/13/20 21:00 03/29/20 20:59 02/14/20 09:00 Levothyroxine Sodium (Synthroid) 50 mcg DAILY@0630 ORAL 02/15/20 06:30 03/16/20 06:29 Ondansetron HCl (Zofran) 4 mg Q6H PRN IVP Nausea & Vomiting 02/13/20 18:15 03/14/20 18:14 Assessment/Plan Assessment/Plan Pulmonary Progress Note HPI Patient is a 44-year-old woman noted to be Covid-19 positive, admitted complaining of fatigue, body aches, altered mental status, duration 1day, no aggravating relieving factors severity is moderate. CXR no infiltates,CT no IC pathology. Seen by Dr Abdalla Neurology No current complaints Allergies: No Known Allergies) Past Medical History: Hypothyroidism Physical Exam Vital Signs noted General Appearance: non toxic, interactive Head: normocephalic, atraumatic Eyes: bilateral eye PERRL, bilateral eye EOMI ENT: uvula midline, moist mucus membranes Neck: supple, thyroid normal, supple/symm/no masses Respiratory: lungs clear, no respiratory distress, no retraction, no accessory muscle use Cardiovascular: normal peripheral pulses, regular rate, rhythm, no edema, no gallop, no murmur Gastrointestinal: non tender, soft, no guarding, no rebound Musculoskeletal: normal inspection Neurologic: responsive, Oriented x 4,nofocalsigns, no seizures, senzation intact, other - Moves all 4 extremities Skin: no rash, warm/dry Medical Decision Making Impression: Altered mental status Encephalitis vs Meningitis COVID-19 Plan: IV AB:Cefepime and Vanco - DC low chance of Meningitis per Dr Abdalla Neurology IVF O2 PRN Neurology Consultation ID Consultation NPO except meds PPX Monitor labs Laboratory Tests noted EKG: NSR rate 75 QTC 439, no acute ST elevations, normal axis Chest X-Ray: no consolidation, no effusion, no pneumothorax, no acute cardiopulmonary disease CT Head, non contrast: Indications: Altered mental status No acute intracranial hemorrhage nor edema. No mass effect nor midline shift. There is mild frontal cortical volume loss, out of portion to patient's age. Normal size ventricles. Normal mason-white differentiation. Impression: No acute intracranial bleed or mass effect MRI:noted Kd Whitaker MD Feb 14, 2020 18:00
--- NOTE | 2020-02-14 19:26 | NUR ---
NURSE HAND-OFF REPORT: Important Events on Shift: Patient admitted from ER, seen by Dr. Whitaker, per Dr. Solis pt is ok to DC home, on room air with no SOB. Discharge orders given by Dr. Whitaker Patient Status: Stable Diet: Regular Pending Orders: Pending Results/Labs: Pending MD notification: Latest Vital Signs: Temperature 96.1 , Pulse 75 , B/P 145 /75 , Respiratory Rate 18 , O2 SAT 99 , Nasal Cannula, O2 Flow Rate 2.0 . Vital Sign Comment: EKG Rhythm: Sinus Rhythm Rhythm change?: N MD Notified?: - MD Response: Latest Lang Fall Score: 20 Fall Risk: Low Risk Safety Measures: Call light Within Reach, Bed Alarm Zone 1, Side Rails Side Rails x2, Bed position Low and Locked. Fall Precautions: Patient Fall Education Report given to Francoise SPICER.
--- NOTE | 2020-02-14 19:32 | NUR ---
NURSE NOTES: Received report from NAYAN Dowling,pt. in bed awake, appears to be A/O x's4- N[place]uan and [place] speaking, bed alarm on, side rails up x's 2 and safety brakes engaged, call light within easy reach, per endorsement pt. ambulates with steady gait- and being discharged now per MD, pt. appear to be sating well on room air- no distress noted- breathing unlabored and even, pt. has rt. hand 20G IV running D5NS +20KCl meq running at 75cc/hr- IV intact and patent, safety measures continued, will continue with plan of care.
--- NOTE | 2020-02-14 20:39 | NUR ---
NURSE NOTES: pt. being discharged- awaiting for to pick her up. Addendum: 02/14/20 at 3 by ALKA CARRILLO RN RN tobacco sampler and IV removed.
[2020-02-14] MEDS ORDERED: Cefepime HCl 2 GM in D5W 110 ML IV SCH (21:00)
--- NOTE | 2020-02-14 21:07 | NUR ---
NURSE NOTES: pt. discharged with .- remains stable upon discharge.
--- NOTE | 2020-02-15 11:18 | NUR ---
INSURANCE DC INSTRUCTIONS( 02/12-02/13) FAXED TO [facility] [phone]
--- NOTE | 2020-02-15 15:16 | Discharge Summary ---
Discharge Summary Discharge Summary _ DATE OF ADMISSION: 02/13/2020 DATE OF DISCHARGE: 02/14/2020 DISCHARGED BY: Dr. Whitaker REASON FOR ADMISSION: [] 54 years old female with past medical history of hypothyroidism presented with fatigue body ache and altered mental status. Upon evaluation she was afebrile pulse oximetry was stable on room air. Rapid COVID-19 in ED was positive. CT of the head revealed no acute intracranial pathology. Chest x-ray demonstrated no acute cardiopulmonary pathology. Laboratory work-up revealed WBC 4.5 stable hemoglobin hematocrit and platelet count. Stable electrolytes and renal parameters. Glucose one twenty-one. Lactic acid 1.1. AST sixty-four ALT forty-six troponin negative proBNP fifty-five Urinalysis revealed no evidence of UTI. Emergency department patient received a liter of fluid empiric antibiotic patient admitted to to isolation room CONSULTANTS: neurology [facility] COURSE: [] Patient need to isolation room. Patient was kept n.p.o. MRI of the brain was done revealed no evidence of intracranial pathology per neurologist load low chance of meningitis. Patient was on the IV fluids and empiric antibiotics supplemental oxygen provided and titrated to keep pulse oximetry above 92%. Blood culture came back negative. Patient remained afebrile. Mental status back to normal she was awake alert and oriented and nonfocal neurologist cleared patient for discharge no encephalitis altered mental status was possibly due to COVID-19 Due to rapid and unexpected improvement patient condition patient was discharged in 1 day. FINAL DIAGNOSES: COVID-19 Altered mental status -resolved Encephalitis was ruled out DISCHARGE MEDICATIONS: See Medication Reconciliation list. DISCHARGE INSTRUCTIONS: Patient was discharged home. Continue self-isolation for total of 10 days. I have been assigned to dictate discharge summary for this account. I was not involved in the patient's management. Erika Perez NP Feb 15, 2020 15:16
== END 2020-02-14 20:30 | disposition home or self-care (01) | DRG 177 ==
LOC: EDBD 09:40 → EMR 12:25 → 2E 13:10 → EDBEDREQ 13:31 → 2E 02-14 10:00
DX: U07.1 COVID-19 (principal); G03.9 Meningitis, unspecified; E03.9 Hypothyroidism, unspecified
CPT/HCPCS: 36415; 70450; 70552; 71045; 80053; 80069; 81003; 82248; 82550; 82553; 83605; 83690; 83735; 83880; 84100; 84439; 84481; 84484; 85025; 85610; 85730; 87040; 93005; 96361; 96365; 96367; 99291; A9585; J7030; U0002